=== PATIENT | female | born 1980 | race Two or more races ===

== ENCOUNTER 2017-05-22 07:58 | Observation (INO) | payer MEDICAID ==
[2017-05-21 11:01] LABS: BASOPHIL % 0.5 % (0-2); PLATELET COUNT 242 x10^3mcL (130-400); RED CELL DISTRIBUTION WIDTH 12.5 % (11.5-14.5)
[2017-05-21 11:34] LABS: ALBUMIN 4.3 g/dL (3.4-5.0); ALKALINE PHOSPHATASE 90 U/L (46-116); ALT/SGPT 24 U/L (14-59); AST/SGOT 16 U/L (15-37); BILIRUBIN TOTAL 0.3 mg/dL (0.20-1.00); CALCIUM 9.6 mg/dL (8.5-10.1); CARBON DIOXIDE 27.4 mmol/L (21-32); CHLORIDE SERUM 104 mmol/L (98-107); CREATININE SERUM 0.6 mg/dL (0.6-1.0); GFR1 > 60 mL/min; GLUCOSE SERUM 101 mg/dL (74-106); POTASSIUM SERUM 3.8 mmol/L (3.5-5.1); SODIUM SERUM 140 mmol/L (136-145); TOTAL PROTEIN, SERUM 8.2 g/dL (6.4-8.2)
[~2017-05-22] VITALS: Ht 157.5 cm; Wt 58.0 kg
[2017-05-22 08:20] VITALS: BP 145/98
[2017-05-22 18:58] VITALS: BP 131/95
[2017-05-22 19:00] VITALS: BP 131/95
[2017-05-23 05:26] VITALS: BP 97/56
[2017-05-23 06:30] LABS: BASOPHIL % 0.2 % (0-2); PLATELET COUNT 192 x10^3mcL (130-400); RED CELL DISTRIBUTION WIDTH 12.3 % (11.5-14.5)
[2017-05-23 08:51] VITALS: BP 101/59
[2017-05-23 12:11] VITALS: BP 98/63
[2017-05-23 16:08] VITALS: BP 104/65
[2017-05-23 19:57] VITALS: BP 104/65
== END 2017-05-23 21:07 | disposition home or self-care (01) | DRG 362 ==
LOC: DS 07:58 → OR 12:00 → DS 12:00 → EDBD 12:00 → DU 17:55 → MU 19:30
PROVIDERS: Surgery
PROC: 07B50ZZ Excision of Right Axillary Lymphatic, Open Approach (ICD-10-PCS; principal; 2017-05-22 12:00)
PROC: 0HTT0ZZ Resection of Right Breast, Open Approach (ICD-10-PCS; principal; 2017-05-22 12:00)
DX: C50.411 Malignant neoplasm of upper-outer quadrant of right female breast (principal); C77.3 Secondary and unspecified malignant neoplasm of axilla and upper limb lymph nodes; F41.9 Anxiety disorder, unspecified
CPT/HCPCS: 88329; 88344; 88361; G0378; J0690; J2270; J2405; J2704; J3010; J3490; J7030; J7120; Q9968